=== PATIENT | male | born 1965 | race Caucasian/White ===

== ENCOUNTER 2021-12-14 11:31 | Outpatient (RCR) | payer BC, MEDICAID, SELFPAY ==
[2021-12-14 11:50] VITALS: BP 99/60; PULSE 63; RESP 18; TEMP 36.6; O2SAT 100
--- NOTE | 2021-12-14 12:30 | PC.NURSE ---
Pt to GI infusions for drainage of Pleurx cath to RLQ for malignant ascites. Pt with history of esophageal cancer with mets. Pt recently discharged from [facility] in [place], [place]. Pt moved to [place], [place] to live with his sister on Saturday. Sister presents with pt today. Pt scheduled to see Harry Lombardo to establish PCP tomorrow. Pt is also to call and schedule appointment with cancer treatment center. Pleurx cath was placed in [place] to help keep abdomen drained. Pt is self pay with Medicaid pending. Pt unable to afford to buy Pleurx kits to drain catheter at home. Pt drained prior to discharge from [facility] on Saturday with 6400 mL removed. Today (), 4000 mL clear, nga fluid removed. Pt scheduled twice weekly for drainage of Pluerx cath. Script sent with patient only covers 30 kits for the next 90 days. Each kit drains 1L of fluid. Pt used 4 kits today. Pt will run out of kits in 3 weeks as opposed to 3 months as script is written. Contacted Dr. Lombardo's clinic to discuss getting pt set up for weekly paracentesis with radiologist. Using 8+ kits per week to drain patient will exhaust current resources.
== END 2022-01-10 23:59 | disposition home or self-care (01) ==
LOC: GILAB 11:31
PROVIDERS: PCP Family Medicine; Visit Provider Hospitalist
DX: C80.1 Malignant (primary) neoplasm, unspecified (principal); R18.0 Malignant ascites
CPT/HCPCS: 99212

== ENCOUNTER 2021-12-15 10:04 | Emergency (ER) | payer BC, MEDICAID, SELFPAY ==
[2021-12-15] VITALS (19 sets, daily range): BP systolic 88–111; BP diastolic 54–81; PULSE 92–105; RESP 13–36; TEMP 36.6; O2SAT 96–100; BMI 26.0
--- NOTE | 2021-12-15 10:59 | XR_ITS ---
WS: [id number] Portable AP upright chest, 12/15/2021 Clinical Data: dyspnea/cough Comparison: None. Findings: No nodules, masses or effusions are seen. The heart is normal. The pulmonary vascularity is not increased. No pneumonia or pneumothorax is seen. There is a right internal jugular venous Port-A -Cath with the tip ending in the superior vena cava. There are monitor leads on the chest wall. XR/XR chest 1V portable [id number] Impression: Negative chest.
[2021-12-15 11:11] LABS: Basophils % 0.2 %; Eosinophils # 0.2 10^3/uL (0.0-0.8); Eosinophils % 1.1 %; Lymphocytes # 0.5 10^3/uL (0.8-4.8); Mean Corpuscular Volume 87.4 fl (80-94); Mean Platelet Volume 9.1 fL (7.4-10.4); Monocytes % 7.3 %; Neutrophils # 10.51 10^3/uL (1.8-7.7); Neutrophils % 79.7 %; Nucleated Red Blood Cells % 0.2 %; Platelet Count 318 10^3/cmm (130-400); Red Blood Count 2.86 10^6/uL (4.1-5.3); Red Cell Distribution Width 15.2 % (12.1-15.1); White Blood Count 13.2 10^3/uL (4.0-10.0)
--- NOTE | 2021-12-15 11:13 | ED_ITS ---
HPI - General Adult General: Chief complaint: General Medical Stated complaint: Low BP Time Seen by Provider: 12/15/21 10:34 Source: patient Mode of arrival: ambulatory History of Present Illness: 56-year-old male presents emergency room with complaint of lightheadedness and dizziness. He was at her primary care doctor's office today to establish and was noted to be significantly hypotensive. Patient has a history of esophageal cancer was diagnosed over a year ago he took partial treatment with chemo and radiation and then stopped, reportedly did 1-2 treatments. No reason given for cessation of treatment.. Initially he was in [place] he then moved to a family member's home in [facility] was hospitalized last month. At that time he had CT scans done and had a abdominal port placed to drain ascitic fluid. He drained 4 L yesterday and today he is lightheaded dizzy and hypotensive. It was 6 serous fluid they report there was no cloudiness appearance or blood-tinged appearance to it. He has not had any fever sweats or chills. He is mildly tachycardic on arrival. He denies any known history of coronary artery disease or diabetes. He has not had any fever sweats or chills. He does report that when he was at [place] they told him that there was extension of the cancer into his abdomen and the fluid that was drained off showed signs of cancer cells. Reviewing records it appears he had 6.5 L removed on December 11, 2021 and another 4 L on December 14. For a total of 10.5 L of this week alone. Onset (ago): day(s) Location: abdomen Radiation: non-radiation Severity: moderate Quality: aching Pain Consistency: constant Relieving factors: none Exacerbating factors: none Associated symptoms: Reports decreased appetite, dyspnea and weakness; Deny chest pain, confusion, cough, diaphoresis, fevers/chills, headache(s), malaise, nausea, rash, palpitations, seizures, short of breath, syncope or vomiting Treatments prior to arrival: none Review of Systems Const: Denies: fever(s), chills, fatigue, malaise or diaphoresis ENMT: Denies: throat pain, ear or mastoid pain, nasal discharge or nasal congestion Card: Denies: chest pain, palpitations or syncope Resp: Reports: dyspnea GI: Denies: abdominal pain, nausea or vomiting : Denies: flank pain, dysuria, urinary frequency or urinary urgency Skin/Breast: Denies: rash Neuro: Denies: headache(s) or confusion PFSH ED PFSH: Medical History (Updated 12/15/21 @ 15:38 by Rios Adamson DO) Esophageal cancer Malignant ascites Port-A-Cath in place Family History (Updated 12/15/21 @ 08:58 by Suzie Greene LPN) Mother CAD (coronary artery disease) Diabetes Grandmother CAD (coronary artery disease) Diabetes Father Lung disease copd Denies family history of Clotting disorder Dementia Hyperlipidemia Psychiatric illness Chronic kidney disease (CKD) Anesthesia complication Bleeding disorder Cancer Hypertension Stroke Social History (Updated 12/15/21 @ 08:59 by Suzie Greene LPN) Smoking and tobacco status: never smoked Alcohol intake: never Desire information about alcohol rehabilitation?: No Desire information about substance/drug rehabilitation?: No Adopted: No Caregiver/support person: Yes Current occupational status: disabled History of recent travel: Yes Current gender identity: Male Course Vital Signs: Vital signs: Vital Signs Temperature 97.8 F 12/15/21 10:33 Pulse Rate 105 H 12/15/21 16:08 Respiratory Rate 17 12/15/21 16:08 Blood Pressure 92/56 12/15/21 16:08 Pulse Oximetry 100 12/15/21 16:08 Oxygen Delivery Me thod 12/15/21 10:33 [facility] - General Adult Medical Decision Making Records obtained from [facility] in [place]. 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 He has had a large amount of ascites removed recently since the drain was placed. In the notes that her oncology felt that he was best suited for palliative treatment. I discussed this with the patient. We offered admission based on his hyponatremia however did discuss with him that this is something we likely would be able to correct and rather short order and would most likely recur with further drainage from his abdomen. I suspect that placed the peritoneal drain anticipating that he was at end-of-life care. Patient opted to go home for to day we will try to get him set up for oncology so he can discuss what his options may or may not be going forward. The records sent to us from [facility] were reviewed and the most pertinent were scanned into the chart. Medical Records I reviewed the patient's medical records. Lab Data I reviewed the patient's lab results. : 12/15/21 10:53 12/15/21 10:53 Radiology Impressions Chest X-Ray 12/15/21 10:59 Impression: Negative chest. Laboratory Results WBC 13.2 10^3/uL (4.0-10.0) H 12/15/21 10:53 RBC 2.86 10^6/uL (4.1-5.3) L 12/15/21 10:53 Hgb 8.0 g/dL (11.7-16.6) L 12/15/21 10:53 Hct 25.0 % (42.0-52.0) L 12/15/21 10:53 MCV 87.4 fl (80-94) 12/15/21 10:53 MCH 28.0 pg (28.0-34.0) 12/15/21 10:53 MCHC 32.0 g/dL (30.0-36.0) 12/15/21 10:53 RDW 15.2 % (12.1-15.1) H 12/15/21 10:53 Plt Count 318 10^3/cmm (130-400) 12/15/21 10:53 MPV 9.1 fL (7.4-10.4) 12/15/21 10:53 Neut % (Auto) 79.7 % 12/15/21 10:53 Lymph % (Auto) 4.0 % 12/15/21 10:53 [place] % (Auto) 7.3 % 12/15/21 10:53 Eos % (Auto) 1.1 % 12/15/21 10:53 Baso % (Auto) 0.2 % 12/15/21 10:53 Neut # (Auto) 10.51 10^3/uL (1.8-7.7) H 12/15/21 10:53 Lymph # (Auto) 0.5 10^3/uL (0.8-4.8) L 12/15/21 10:53 [place] # (Auto) 1.0 10^3/uL (0.2-0.9) H 12/15/21 10:53 Eos # (Auto) 0.2 10^3/uL (0.0-0.8) 12/15/21 10:53 Baso # (Auto) 0.0 10^3/uL (0.0-0.1) 12/15/21 10:53 Nucleated RBC % (auto) 0.2 % 12/15/21 10:53 Nucleated RBCs # 0.0 /100WBC 12/15/21 10:53 Sodium 123 mmol/L (136-145) L 12/15/21 10:53 Potassium 4.8 mmol/L (3.5-5.1) 12/15/21 10:53 Chloride 88 mmol/L (98-107) L 12/15/21 10:53 Carbon Dioxide 19 mmol/L (22-29) L 12/15/21 10:53 Anion Gap 20.8 (5-19) H 12/15/21 10:53 BUN 29 mg/dL (6-20) H 12/15/21 10:53 Creatinine 1.2 mg/dL (0.7-1.2) 12/15/21 10:53 GFR Calculation 62.2 mL/min (90-130) L 12/15/21 10:53 Glucose 136 mg/dL (65-115) H 12/15/21 10:53 Calculated Osmolality 264 mOsm/kg (285-295) L 12/15/21 10:53 Calcium 9.4 mg/dL (8.5-10.5) 12/15/21 10:53 Discharge Plan Discharge Patient Disposition: Home Clinical Impression: Malignant ascites, Esophageal cancer, Carcinomatosis, Pain of metastatic malignancy, Hypotension, Hyponatremia Condition: Stable Prescriptions: New promethazine 25 mg tablet 25 mg PO Q6H PRN (Reason: nausea and vomiting) Qty: 20 0RF oxycodone 5 mg tablet 5 mg PO Q6H PRN (Reason: pain) Qty: 20 0RF No Action acetaminophen [Tylenol Ex Str Rapid Release] 500 mg Tablet 1,000 mg PO Q6H PRN (Reason: Pain) ibuprofen 200 mg Tablet 600 mg PO Q6H PRN (Reason: Pain) gabapentin 100 mg Capsule 200 mg PO TID ciprofloxacin HCl [Cipro] 500 mg Tablet 500 mg PO DAILY polyethylene glycol 3350 [Miralax] 17 gram Powder In Packet 17 g PO DAILY PRN (Reason: Constipation) oxycodone 5 mg Tablet 5 mg PO Q8H PRN (Reason: Pain) Discharge Orders: Discharge ED (Routine); Ordered 12/15/21 Ordered By: Rios Adamson Referrals: Harry Lombardo MD [Primary Care Provider] - Patient Instructions: Opioid Safety, Pain Management Activity Restrictions/Additional Instructions: Case management will make arrangements for you to follow-up with oncology. Coding Level of Care Code ED [employer] Designer for Kin Francis
[2021-12-15] MEDS: sodium chloride 0.9% 1,000 ML 999 ML IV (11:19)
[2021-12-15 11:23] LABS: Anion Gap 20.8 (5-19); Blood Urea Nitrogen 29 mg/dL (6-20); Calcium 9.4 mg/dL (8.5-10.5); Carbon Dioxide 19 mmol/L (22-29); Chloride 88 mmol/L (98-107); Glomerular Filtration Rate 62.2 mL/min (90-130); Glucose 136 mg/dL (65-115); Osmolality Calculated 264 mOsm/kg (285-295); Potassium 4.8 mmol/L (3.5-5.1); Sodium 123 mmol/L (136-145)
[2021-12-15 11:40] LABS: Slide Review Slide Review Perform
--- NOTE | 2021-12-15 12:27 | PC.NURSE ---
pt given urinal, pt states he cannot use a urinal and needs to use the restroom. Educated pt on fall risk and to utilize staff assist and wheelchair for assistance to restroom. Once in restroom, notified by tech that pt refused assistance, requesting staff to wait outside
== END 2021-12-15 16:10 | disposition home or self-care (01) ==
PROVIDERS: Emergency Provider Family Medicine; PCP Family Medicine
DX: I95.9 Hypotension, unspecified (principal); C15.9 Malignant neoplasm of esophagus, unspecified; R18.0 Malignant ascites; C80.0 Disseminated malignant neoplasm, unspecified; G89.3 Neoplasm related pain (acute) (chronic); E87.1 Hypo-osmolality and hyponatremia
CPT/HCPCS: 71045; 80048; 85025; 96360; 99284; J7030

== ENCOUNTER 2021-12-18 11:11 | Day surgery (SDC) | payer BC, MEDICAID, SELFPAY ==
--- NOTE | 2021-12-18 11:14 | US_ITS ---
WS: [id number] ULTRASOUND-GUIDED PARACENTESIS CLINICAL INFORMATION: malignant ascites COMPARISON: None. Procedure Informed consent: The risks, benefits, and alternatives of the procedure were discussed with the tye ent. Verbal and written consent was obtained. Timeout: A timeout was performed to confirm the correct patient, procedure, and site. Preparation: A suitable skin site was identified. The patient was prepped and draped in usual sterile fashion. Lidocaine 1% was used for local anesthesia. Catheter: 4 Lao One-step Yueh catheter. Side: RIGHT Lower quadrant. Fluid Volume: 3550 ml Color: Brittany 50 cc sent for requested diagnostic tests. DISPOSITION: Discarded safely. Complications: None. Patient disposition: Discharged from the department in stable condition. US/US paracentesis abd w [id number] IMPRESSION: Uncomplicated ultrasound-guided paracentesis. Removal of 3550 cc
[2021-12-18 11:30] VITALS: BP 82/53; PULSE 103; RESP 20; TEMP 36.4; O2SAT 100
--- NOTE | 2021-12-18 13:10 | PC.NURSE ---
pt paracentesis started at 1243 with 6ml of 1% lidocaine applied to area lidocaine administered by Dr. Salazar in right abdomen pt tolerated poorly due to increased pain over all
[2021-12-18 13:13] LABS: Mononuclear #, Pertinoneal Fl 0.629 10^3/uL; Polynuclear # Cells, Perit 0.135 10^3/uL
[2021-12-18 13:21] LABS: Color, Peritoneal Fluid Slight Pink (Pale Yellow)
[2021-12-18 13:22] LABS: Appearance, Peritoneal Fluid Hazy (Clear)
[2021-12-18 13:27] LABS: RBC Pertioneal Fluid 6 10^3/uL; WBC Peritoneal Fluid 764 /uL
[2021-12-18 14:02] LABS: Albumin Body Fluid 1.6 g/dL; Total Protein Body Fluid 2.9 g/dL
[2021-12-18 14:03] LABS: LDH Body Fluid 885 U/L
[2021-12-18 14:45] LABS: Cyto Order Verification No Order
== END 2021-12-18 14:13 | disposition home or self-care (01) ==
LOC: GILAB 11:14
PROVIDERS: PCP Family Medicine; Visit Provider Family Medicine
PROC: (CPT 49082; principal; 2021-12-18 13:00)
DX: R18.8 Other ascites (principal)
CPT/HCPCS: 49083; 80503; 82042; 82945; 83615; 84157; 87070; 87075; 87205; 88108; 89050

== ENCOUNTER 2021-12-25 11:01 | Day surgery (SDC) | payer BC, MEDICAID, SELFPAY ==
[2021-12-24 11:20] VITALS: BP 96/66; PULSE 97; RESP 22; TEMP 36.1; O2SAT 100
--- NOTE | 2021-12-25 11:20 | US_ITS ---
WS: [id number] ULTRASOUND-GUIDED THERAPEUTIC PARACENTESIS Procedure, risks, and complications have been explained to the patient. Consent is obtained. Utilizing aseptic technique and 1% buffered lidocaine, a small dermatome was made through which a 5 F rench Yueh catheter was inserted. Approximately 7500 ml of light red peritoneal fluid was obtained w ithout difficulty. No complications encountered. US/US paracentesis abd w [id number] IMPRESSION: Uncomplicated paracentesis yielding 7500 ml of peritoneal fluid.
[2021-12-25 13:00] VITALS: BP 89/56; PULSE 99; RESP 22; O2SAT 99
== END 2021-12-25 13:20 | disposition home or self-care (01) ==
LOC: GILAB 11:02
PROVIDERS: Radiology Diagnostic Radiology; PCP Family Medicine; Visit Provider Family Medicine
PROC: (CPT 49082; principal; 2021-12-25 12:00)
DX: C80.1 Malignant (primary) neoplasm, unspecified (principal); R18.0 Malignant ascites
CPT/HCPCS: 49083

== ENCOUNTER 2021-12-29 12:14 | Emergency (ER) | payer BC, MEDICAID, SELFPAY ==
[2021-12-29 12:21] VITALS: BP 62/40; PULSE 101; RESP 16; TEMP 36.4; O2SAT 100; BMI 25.5
--- NOTE | 2021-12-29 12:33 | XR_ITS ---
WS: [id number] Exam: XR chest 1V portable [id number] Date/Time of Exam: 12/29/2021 12:33 PM Reason For Exam: dyspnea/cough Comparison 12/15/2021. The lungs are clear and fully inflated. Heart size is normal. A right subclavian port extends into th e right atrium. No pleural effusions. The mediastinum is normal in contour. Regional bony elements ap pear normal. Monitoring leads superimpose the chest. XR/XR chest 1V portable [id number] IMPRESSION: 1. No acute cardiopulmonary finding.
--- NOTE | 2021-12-29 12:37 | W.ED.GENADLT ---
HPI - General Adult General: Chief complaint: Shortness of Breath/Dyspnea Stated complaint: BP problems Time Seen by Provider: 12/29/21 12:32 Source: patient Mode of arrival: ambulatory History of Present Illness: 56 yo male presents to the ER [facility] complaints of abd pain and distention. Patient has a known history of esophageal cancer. He had delayed treatment and has significant metastasis. Presents extremely weak with distention of his abdomen. He is chronically anemic as well. He has had thoracentesis and paracentesis with intermittent relief of symptoms but all of his symptoms recur within a few days. He is having bloody stools as well. On presentation he is hypotensive and tachycardic. His symptoms are progressively worsening. Onset (ago): week(s) Pain Consistency: intermittent Relieving factors: none Exacerbating factors: none Associated symptoms: Reports confusion, decreased appetite, malaise, nausea, short of breath and weakness; Deny chest pain, cough, diaphoresis, dyspnea, fevers/chills, headache(s), rash, palpitations, seizures, syncope or vomiting Treatments prior to arrival: none Review of Systems Const: Reports: fatigue and malaise; Denies: fever(s), chills or diaphoresis ENMT: Denies: throat pain, ear or mastoid pain, nasal discharge or nasal congestion Card: Denies: chest pain, palpitations or syncope Resp: Denies: dyspnea GI: Reports: abdominal pain, nausea, bloating and GI cramping; Denies: vomiting : Denies: flank pain, dysuria, urinary frequency or urinary urgency Skin/Breast: Denies: rash Neuro: Reports: confusion; Denies: headache(s) [facility] ED PFSH: Medical History Esophageal cancer Malignant ascites Port-A-Cath in place Family History Mother CAD (coronary artery disease) Diabetes Grandmother CAD (coronary artery disease) Diabetes Father Lung disease copd Denies family history of Clotting disorder Dementia Hyperlipidemia Psychiatric illness Chronic kidney disease (CKD) Anesthesia complication Bleeding disorder Cancer Hypertension Stroke Social History Smoking and tobacco status: never smoked Alcohol intake: never Desire information about alcohol rehabilitation?: No Desire information about substance/drug rehabilitation?: No Adopted: No Caregiver/support person: Yes Current occupational status: disabled History of recent travel: Yes Current gender identity: Male Physical Exam Const: GENERAL APPEARANCE: cooperative HENMT: COMMON NORMALS: normocephalic, atraumatic and hearing grossly normal bilaterally HEAD & SCALP: normocephalic and atraumatic Resp: COMMON NORMALS: normal respiratory effort, No retractions, No use of accessory muscles and clear to auscultation bilaterally AUSCULTATION: clear to auscultation bilaterally Cardio: COMMON NORMALS: regular rhythm and No murmurs present (Cardio) RATE: tachycardic RHYTHM: regular rhythm GI: INSPECTION: Yes abdominal distension and Yes Fluid wave present AUSCULTATION: Yes normoactive bowel sounds PERCUSSION: dullness to percussion and Fluid wave present Extremity: COMMON NORMALS: normal to inspection, capillary refill normal, no clubbing, cyanosis or edema, no calf tenderness and no pedal edema Skin: COMMON NORMALS: no rashes or lesions noted GENERAL SKIN EXAM: no rashes or lesions noted Course Vital Signs: Vital signs: Vital Signs Temperature 97.6 F 12/29/21 12:21 Pulse Rate 93 12/29/21 13:10 Respiratory Rate 26 H 12/29/21 13:10 Blood Pressure 88/64 12/29/21 13:10 Pulse Oximetry 100 12/29/21 13:10 Oxygen Delivery Me thod 12/29/21 13:05 MDM - General Adult Medical Decision Making Discussion with patient and his sister. At this point his cancer is very advanced we discussed different treatment options ultimately decided that it would be best to go with supportive cares we will discharge patient from ER and arrange for hospice consult at home for comfort cares. Medical Records I reviewed the patient's medical records. Lab Data I reviewed the patient's lab results. 12/29/21 12:48 12/29/21 12:48 Radiology Impressions Chest X-Ray 12/29/21 12:33 IMPRESSION: 1. No acute cardiopulmonary finding. Laboratory Results WBC 20.6 10^3/uL (4.0-10.0) H 12/29/21 12:48 RBC 2.85 10^6/uL (4.1-5.3) L 12/29/21 12:48 Hgb 8.0 g/dL (11.7-16.6) L 12/29/21 12:48 Hct 25.2 % (42.0-52.0) L 12/29/21 12:48 MCV 88.4 fl (80-94) 12/29/21 12:48 MCH 28.1 pg (28.0-34.0) 12/29/21 12:48 MCHC 31.7 g/dL (30.0-36.0) 12/29/21 12:48 RDW 16.8 % (12.1-15.1) H 12/29/21 12:48 Plt Count 124 10^3/cmm (130-400) L 12/29/21 12:48 MPV 10.1 fL (7.4-10.4) 12/29/21 12:48 Neut % (Auto) 81.8 % 12/29/21 12:48 Lymph % (Auto) 5.8 % 12/29/21 12:48 [place] % (Auto) 5.5 % 12/29/21 12:48 Eos % (Auto) 0.2 % 12/29/21 12:48 Baso % (Auto) 0.2 % 12/29/21 12:48 Neut # (Auto) 16.84 10^3/uL (1.8-7.7) H 12/29/21 12:48 Lymph # (Auto) 1.2 10^3/uL (0.8-4.8) 12/29/21 12:48 [place] # (Auto) 1.1 10^3/uL (0.2-0.9) H 12/29/21 12:48 Eos # (Auto) 0.0 10^3/uL (0.0-0.8) 12/29/21 12:48 Baso # (Auto) 0.1 10^3/uL (0.0-0.1) 12/29/21 12:48 Nucleated RBC % (auto) 0.7 % 12/29/21 12:48 Nucleated RBCs # 0.1 /100WBC 12/29/21 12:48 Sodium 121 mmol/L (136-145) L 12/29/21 12:48 Potassium 5.9 mmol/L (3.5-5.1) H 12/29/21 12:48 Chloride 85 mmol/L (98-107) L 12/29/21 12:48 Carbon Dioxide 15 mmol/L (22-29) L 12/29/21 12:48 Anion Gap 26.9 (5-19) H 12/29/21 12:48 BUN 56 mg/dL (6-20) H 12/29/21 12:48 Creatinine 1.6 mg/dL (0.7-1.2) H 12/29/21 12:48 GFR Calculation 44.6 mL/min (90-130) L 12/29/21 12:48 Glucose 151 mg/dL (65-115) H 12/29/21 12:48 Calculated Osmolality 270 mOsm/kg (285-295) L 12/29/21 12:48 Lactic Acid 6.3 mmol/L (0.5-2.2) H* 12/29/21 12:48 Calcium 11.4 mg/dL (8.5-10.5) H 12/29/21 12:48 Magnesium 2.7 mg/dL (1.7-2.3) H 12/29/21 12:48 Total Bilirubin 0.4 mg/dL (0.15-1.2) 12/29/21 12:48 AST 40 U/L (0-40) 12/29/21 12:48 ALT 11 U/L (0-41) 12/29/21 12:48 Alkaline Phosphatase 239 U/L (40-130) H 12/29/21 12:48 Creatine Kinase 167 U/L (39-308) 12/29/21 12:48 Total Protein 6.3 g/dL (6.6-8.7) L 12/29/21 12:48 Albumin 2.9 g/dL (3.5-5.2) L 12/29/21 12:48 Globulin 3.4 g/dL (1.3-4.6) 12/29/21 12:48 Discharge Plan Discharge Patient Disposition: Home Clinical Impression: Esophageal cancer, Malignant ascites, Pain of metastatic malignancy, Hypotension, Carcinomatosis Condition: Stable Prescriptions: No Action acetaminophen 500 mg Tablet 1,000 mg PO Q6H PRN (Reason: Pain) ibuprofen 200 mg Tablet 600 mg PO Q6H PRN (Reason: Pain) promethazine 25 mg tablet 25 mg PO Q6H PRN (Reason: nausea and vomiting) Qty: 20 0RF gabapentin 100 mg Capsule 200 mg PO TID polyethylene glycol 3350 [Miralax] 17 gram Powder In Packet 17 g PO DAILY PRN (Reason: Constipation) oxycodone 5 mg Tablet 5 mg PO Q6H PRN (Reason: Pain) Discharge Orders: Discharge ED (Routine); Ordered 12/29/21 Ordered By: Rios Adamson Referrals: Harry Lombardo MD [Primary Care Provider] - Patient Instructions: Opioid Safety, Pain Management Coding Level of Care Code ED [employer] Researcher for Kin Francis
--- NOTE | 2021-12-29 12:44 | PC.PHAR ---
pts sister verified pts medications-states the pt has the medications entered and states some of the medications are from [place]-pts sister states the pt is almost out of the oxycodone states the pt had some from [place] and then ext med history shows filled 12/17/21 5d/s-notes are made in the pharmacy comments
[2021-12-29 12:54] VITALS: BP 76/47; PULSE 95; RESP 17; O2SAT 94
[2021-12-29 12:55] VITALS: BP 79/52; PULSE 95; RESP 19; O2SAT 100
[2021-12-29 12:57] LABS: Basophils # 0.1 10^3/uL (0.0-0.1); Basophils % 0.2 %; Eosinophils % 0.2 %; Hematocrit 25.2 % (42.0-52.0); Lymphocytes # 1.2 10^3/uL (0.8-4.8); Lymphocytes % 5.8 %; Mean Corpuscular HGB Conc 31.7 g/dL (30.0-36.0); Mean Corpuscular Hemoglobin 28.1 pg (28.0-34.0); Mean Corpuscular Volume 88.4 fl (80-94); Mean Platelet Volume 10.1 fL (7.4-10.4); Monocytes # 1.1 10^3/uL (0.2-0.9); Monocytes % 5.5 %; Neutrophils # 16.84 10^3/uL (1.8-7.7); Neutrophils % 81.8 %; Nucleated Red Blood Cells # 0.1 /100WBC; Nucleated Red Blood Cells % 0.7 %; Platelet Count 124 10^3/cmm (130-400); Red Blood Count 2.85 10^6/uL (4.1-5.3); Red Cell Distribution Width 16.8 % (12.1-15.1); White Blood Count 20.6 10^3/uL (4.0-10.0)
[2021-12-29 13:00] VITALS: BP 79/52; PULSE 93; RESP 28
[2021-12-29 13:05] VITALS: BP 80/60; PULSE 92; PULSE 93; RESP 20; RESP 27; O2SAT 100
[2021-12-29 13:10] VITALS: BP 88/64; PULSE 93; RESP 26; O2SAT 100
[2021-12-29 13:16] LABS: Alanine Aminotransferase 11 U/L (0-41); Albumin Level 2.9 g/dL (3.5-5.2); Alkaline Phosphatase 239 U/L (40-130); Aspartate Amino Transferase 40 U/L (0-40); Blood Urea Nitrogen 56 mg/dL (6-20); Calcium 11.4 mg/dL (8.5-10.5); Carbon Dioxide 15 mmol/L (22-29); Chloride 85 mmol/L (98-107); Creatine Phosphokinase 167 U/L (39-308); Globulin 3.4 g/dL (1.3-4.6); Glomerular Filtration Rate 44.6 mL/min (90-130); Glucose 151 mg/dL (65-115); Magnesium 2.7 mg/dL (1.7-2.3); Osmolality Calculated 270 mOsm/kg (285-295); Sodium 121 mmol/L (136-145); Total Bilirubin 0.4 mg/dL (0.15-1.2); Total Protein 6.3 g/dL (6.6-8.7)
[2021-12-29 13:19] LABS: Anion Gap 26.9 (5-19); Lactic Sepsis W/Reflex 6.3 mmol/L (0.5-2.2)
[2021-12-29 13:20] LABS: Potassium 5.9 mmol/L (3.5-5.1)
[2021-12-29] MEDS: sodium chloride 0.9% 1,000 ML 999 ML IV (13:26)
[2021-12-29] MEDS: ondansetron 2 mg/ML SDV 2 mL 4 MG IVP (13:29)
[2021-12-29] MEDS: HYDROmorphone 1 mg/mL INJ 1 mL 0.5 MG IVP (13:30)
[2021-12-29 13:57] LABS: Slide Review Slide Review Perform
[2021-12-29 14:41] LABS: Reflex Lactate Order REFLEX LACTIC ORDERD
== END 2021-12-29 15:11 | disposition home or self-care (01) ==
PROVIDERS: Emergency Provider Family Medicine; PCP Family Medicine
DX: C15.9 Malignant neoplasm of esophagus, unspecified (principal); R18.0 Malignant ascites; I95.9 Hypotension, unspecified; C80.0 Disseminated malignant neoplasm, unspecified
CPT/HCPCS: 71045; 80053; 82550; 83605; 83735; 85025; 96361; 96374; 96375; 99284; J1170; J2405; J7030

== ENCOUNTER 2022-01-01 10:47 | Day surgery (SDC) | payer BC, MEDICAID, SELFPAY ==
[2022-01-01] VITALS (7 sets, daily range): BP systolic 73–100; BP diastolic 49–66; PULSE 63–87; RESP 18; TEMP 35.9; O2SAT 100
--- NOTE | 2022-01-01 10:53 | US_ITS ---
WS: [id number] ULTRASOUND-GUIDED PARACENTESIS CLINICAL INFORMATION: ascities COMPARISON: None. Procedure Informed consent: The risks, benefits, and alternatives of the procedure were discussed with the tye ent. Verbal and written consent was obtained. Timeout: A timeout was performed to confirm the correct patient, procedure, and site. Preparation: A suitable skin site was identified. The patient was prepped and draped in usual sterile fashion. Lidocaine 1% was used for local anesthesia. Catheter: 4 Vietnamese One-step Yueh catheter. Side: RIGHT upper quadrant. Fluid Volume: 3675 ml Color: Light red DISPOSITION: Discarded safely. Complications: None. Patient disposition: Discharged from the department in stable condition. US/US paracentesis abd w [id number] IMPRESSION: Uncomplicated ultrasound-guided paracentesis. Removal of 3675 cc
== END 2022-01-01 13:01 | disposition home or self-care (01) ==
LOC: GILAB 10:50
PROVIDERS: Radiology Neuroradiology; PCP Family Medicine; Visit Provider Family Medicine
PROC: (CPT 49082; principal; 2022-01-01 11:45)
DX: R18.8 Other ascites (principal)
CPT/HCPCS: 49083

== ENCOUNTER 2022-01-01 16:25 | Inpatient (IN) | payer BC, SELFPAY ==
[2022-01-01] VITALS (53 sets, daily range): BP systolic 65–183; BP diastolic 35–90; PULSE 62–99; RESP 12–21; TEMP 36.6; O2SAT 91–100; BMI 25.5
--- NOTE | 2022-01-01 16:51 | W.ED.GENADLT ---
HPI - General Adult General: Chief complaint: General Medical Stated complaint: toes are purple sent by PCP Time Seen by Provider: 01/01/22 16:44 Source: family (sister) Limitations: altered mental status History of Present Illness: 56-year-old male with a history of esophageal cancer and carcinomatosis with malignant ascites had a paracentesis today starting at 11 and finishing at 2. Afterwards he was lightheaded and dizzy. He ultimately ended up passing out. Patient is found to have severe hypotension on arrival. His extremities are cold. He has poor capillary refill. His right toes in particular are painful and cool to the touch. He has known peripheral arterial disease prior to his hypotension. The paracentesis reportedly went smoothly and there was no expected complication from this. Sister does not know how much fluid was removed. Review of Systems Narrative: Unable to perform review of systems due to the patient's altered mental status and the emergent nature of the situation. The sister informed me of his syncope. He was in a chair when he had syncope so there was no injury. She reports she just picked him up from out of state in [place] 3 weeks ago and so was only familiar with his medical condition over the last 3 weeks. His blood pressure was reportedly 107 prior to the start of his paracentesis. She reports he is not on any anticoagulation. [facility] ED PFSH: Medical History Esophageal cancer Malignant ascites Port-A-Cath in place Family History Mother CAD (coronary artery disease) Diabetes Grandmother CAD (coronary artery disease) Diabetes Father Lung disease copd Denies family history of Clotting disorder Dementia Hyperlipidemia Psychiatric illness Chronic kidney disease (CKD) Anesthesia complication Bleeding disorder Cancer Hypertension Stroke Social History (Updated 12/21/21 @ 09:58 by Suzie Greene LPN) Smoking and tobacco status: never smoked Alcohol intake: never Desire information about alcohol rehabilitation?: No Desire information about substance/drug rehabilitation?: No Adopted: No Caregiver/support person: Yes Current occupational status: disabled History of recent travel: Yes Current gender identity: Male Physical Exam Const: EXAM LIMITATIONS: altered mental status GENERAL APPEARANCE: lethargic, ill appearing and frail appearing; not diaphoretic NUTRITIONAL APPEARANCE: underweight ORIENTATION/CONSCIOUSNESS: Yes patient obtunded and Yes lethargic HENMT: COMMON NORMALS: normocephalic, atraumatic, external ears normal and Normal external nose present HEAD & SCALP: normocephalic and atraumatic NOSE: Normal external nose present EXTERNAL EAR: Yes external ears normal Neck/C-Spine: COMMON NORMALS: no JVD GENERAL: Yes trachea midline Resp: EFFORT & INSPECTION: Yes symmetric chest movement and Yes tachypneic Cardio: COMMON NORMALS: no JVD RATE: tachycardic PERIPHERAL PULSES: radial pulses not present, posterior tibial pulses not present and dorsalis pedis pulses not present GI: COMMON NORMALS: Soft to palpation INSPECTION: Yes normal to inspection PALPATION: Yes Soft to palpation, No Tenderness to palpation present (GI) and No Guarding due to palpation present (GI) Neuro: SENSORIUM/ORIENTATION: Yes lethargic Skin: NARRATIVE SKIN EXAM: There is a drain extending from right lower lateral abdomen. THere is a puncture wound right lower/mid abdomen that has some skin glue on it--appears to be from today. There is another more midline lower right skin defect with skin glue on it--likely from last week. The extremities are pretty pale and cool. The right toes (primarily 2-5) are purplish with slow cap refill and hyperalgesia. Course Vital Signs: Vital signs: Vital Signs Pulse Rate 96 01/01/22 16:47 Respiratory Rate 16 01/01/22 16:47 Blood Pressure 80/52 01/01/22 16:47 Pulse Oximetry 97 01/01/22 16:47 Oxygen Delivery Me thod 01/01/22 16:30 [facility] - General Adult Medical Decision Making 56 yo m with what appears to be post paracentesis hypotension. Review of labs and documents reveals patient has low albumin, recurrent hypotension. He was given 50g of albumin and 1L of warm NS and improved BP to 104 systolic. WBC,, potassium, sodium, hgb and essentially all of his labs are abnormal--but appear chronically so. Lactic quite elevated c/w poor perfusion on presentation--trend. Discussed with Dr Melvin for observation admission in stepdown as may need further workup/treatment. EKG shows NSR at 87, nl axis, qrs 110, qtc okay, no concerning ischemic elevations. No ectopy. Lab Data 01/01/22 16:45 01/01/22 16:45 Laboratory Results WBC 18.3 10^3/uL (4.0-10.0) H 01/01/22 16:45 RBC 2.74 10^6/uL (4.1-5.3) L 01/01/22 16:45 Hgb 7.6 g/dL (11.7-16.6) L 01/01/22 16:45 Hct 24.6 % (42.0-52.0) L 01/01/22 16:45 MCV 89.8 fl (80-94) 01/01/22 16:45 MCH 27.7 pg (28.0-34.0) L 01/01/22 16:45 MCHC 30.9 g/dL (30.0-36.0) 01/01/22 16:45 RDW 17.2 % (12.1-15.1) H 01/01/22 16:45 Plt Count 102 10^3/cmm (130-400) L 01/01/22 16:45 MPV 10.0 fL (7.4-10.4) 01/01/22 16:45 Neut % (Auto) 82.6 % 01/01/22 16:45 Lymph % (Auto) 4.8 % 01/01/22 16:45 Moffat % (Auto) 4.4 % 01/01/22 16:45 Eos % (Auto) 0.3 % 01/01/22 16:45 Baso % (Auto) 0.3 % 01/01/22 16:45 Neut # (Auto) 15.06 10^3/uL (1.8-7.7) H 01/01/22 16:45 Lymph # (Auto) 0.9 10^3/uL (0.8-4.8) 01/01/22 16:45 Moffat # (Auto) 0.8 10^3/uL (0.2-0.9) 01/01/22 16:45 Eos # (Auto) 0.1 10^3/uL (0.0-0.8) 01/01/22 16:45 Baso # (Auto) 0.1 10^3/uL (0.0-0.1) 01/01/22 16:45 Nucleated RBC % (auto) 1.7 % 01/01/22 16:45 Nucleated RBCs # 0.3 /100WBC 01/01/22 16:45 PT 14.50 SECONDS (12.1-14.9) 01/01/22 16:45 INR 1.10 (0.8-1.2) 01/01/22 16:45 Sodium 119 mmol/L (136-145) L* 01/01/22 16:45 Potassium 6.1 mmol/L (3.5-5.1) H 01/01/22 16:45 Chloride 85 mmol/L (98-107) L 01/01/22 16:45 Carbon Dioxide 16 mmol/L (22-29) L 01/01/22 16:45 Anion Gap 24.1 (5-19) H 01/01/22 16:45 BUN 58 mg/dL (6-20) H 01/01/22 16:45 Creatinine 1.6 mg/dL (0.7-1.2) H 01/01/22 16:45 GFR Calculation 44.6 mL/min (90-130) L 01/01/22 16:45 Glucose 158 mg/dL (65-115) H 01/01/22 16:45 Calculated Osmolality 267 mOsm/kg (285-295) L 01/01/22 16:45 Lactic Acid 5.2 mmol/L (0.5-2.2) H* 01/01/22 16:45 Calcium 12.0 mg/dL (8.5-10.5) H 01/01/22 16:45 Total Bilirubin 0.3 mg/dL (0.15-1.2) 01/01/22 16:45 AST 26 U/L (0-40) 01/01/22 16:45 ALT 12 U/L (0-41) 01/01/22 16:45 Alkaline Phosphatase 254 U/L (40-130) H 01/01/22 16:45 Total Protein 6.0 g/dL (6.6-8.7) L 01/01/22 16:45 Albumin 2.8 g/dL (3.5-5.2) L 01/01/22 16:45 Globulin 3.2 g/dL (1.3-4.6) 01/01/22 16:45 Discharge Plan Discharge Patient Disposition: Placed in Observation Clinical Impression: Hypotension, Malignant ascites, Status post abdominal paracentesis, Anemia, Chronic hyponatremia, Hyperkalemia, Carcinomatosis Discharge Diet: Advance as tolerated Coding Level of Care Code ED Armor Reconnaissance Vehicle Crewman for Chg Fwd Exam Detailed
--- NOTE | 2022-01-01 16:53 | ECG_ITS ---
[facility] Test Date: 2022-01-01 Pat Name: Neville Galeas Department: Room: Gender: Male Inspector Electromechanical: : 1965 Requested By: Jay Borrego Order Number: [id number] Anthony MD: Hitesh Montiel M.D. Measurements Intervals [place] Rate: 87 P: -13 [place]: 140 QRS: 62 QRSD: 110 T: 39 QT: 343 QTc: 414 Interpretive Statements SINUS RHYTHM No previous ECG available for comparison Electronically Signed On 01-01-2022 18:17:00 NEWS VIDEOTAPE EDITOR by Hitesh Montiel M.D. [id number]
--- NOTE | 2022-01-01 17:01 | PC.NURSE ---
middle 3 toes on right foot noted to appear cyanotic and non blanchable. skin cool to touch. pt is oriented to person and place. pt states he does not know what month or year this is, but is aware Thanksgiving is coming up.
[2022-01-01 17:07] LABS: Basophils # 0.1 10^3/uL (0.0-0.1); Basophils % 0.3 %; Eosinophils # 0.1 10^3/uL (0.0-0.8); Eosinophils % 0.3 %; Hematocrit 24.6 % (42.0-52.0); Hemoglobin 7.6 g/dL (11.7-16.6); Lymphocytes # 0.9 10^3/uL (0.8-4.8); Lymphocytes % 4.8 %; Mean Corpuscular HGB Conc 30.9 g/dL (30.0-36.0); Mean Corpuscular Hemoglobin 27.7 pg (28.0-34.0); Mean Corpuscular Volume 89.8 fl (80-94); Monocytes # 0.8 10^3/uL (0.2-0.9); Monocytes % 4.4 %; Neutrophils # 15.06 10^3/uL (1.8-7.7); Neutrophils % 82.6 %; Nucleated Red Blood Cells # 0.3 /100WBC; Nucleated Red Blood Cells % 1.7 %; Platelet Count 102 10^3/cmm (130-400); Red Blood Count 2.74 10^6/uL (4.1-5.3); Red Cell Distribution Width 17.2 % (12.1-15.1); White Blood Count 18.3 10^3/uL (4.0-10.0)
[2022-01-01] MEDS: sodium chloride 0.9% 1,000 ML 999 ML IV (17:09)
[2022-01-01 17:36] LABS: Alanine Aminotransferase 12 U/L (0-41); Albumin Level 2.8 g/dL (3.5-5.2); Alkaline Phosphatase 254 U/L (40-130); Anion Gap 24.1 (5-19); Aspartate Amino Transferase 26 U/L (0-40); Blood Urea Nitrogen 58 mg/dL (6-20); Carbon Dioxide 16 mmol/L (22-29); Chloride 85 mmol/L (98-107); Globulin 3.2 g/dL (1.3-4.6); Glomerular Filtration Rate 44.6 mL/min (90-130); Glucose 158 mg/dL (65-115); Osmolality Calculated 267 mOsm/kg (285-295); Potassium 6.1 mmol/L (3.5-5.1); Total Bilirubin 0.3 mg/dL (0.15-1.2)
[2022-01-01 17:40] LABS: Lactic Sepsis W/Reflex 5.2 mmol/L (0.5-2.2)
[2022-01-01 17:41] LABS: Sodium 119 mmol/L (136-145)
--- NOTE | 2022-01-01 18:06 | P.HP_ITS ---
Providers/Chief Complaint Admitting Physician: Gallito Melvin MD Primary Care Provider: Harry Lombardo MD Chief Complaint: toes are purple sent by PCP History of Present Illness Neville Galeas is a 56 year old male with past medical history significant for esophageal cancer with carcinomatosis and malignant ascites, hyperkalemia, hyponatremia, and anemia who presents to the emergency department with syncope. Upon evaluation, patient is awake and alert. He is a very poor historian. Per chart he has a history of metastatic esophageal cancer with malignant ascites that has required multiple paracentesis. He does not know if he is ever received chemotherapy. His only current complaint is his feet are cold. Patient reportedly just moved down here from out of state to be with his sister who was previously present in the emergency department but had to take her home. No collateral information can be obtained from her at this time. He underwent paracentesis today from around 1:49 PM with removal of almost 4 L of fluid. Afterwards he was reportedly lightheaded and dizzy, followed by syncope. In the emergency department he was found to have hypotension with cold extremities. He was started on albumin as well as IV fluids with improvement in blood pressure. He is currently normotensive. He denies chest pain, fevers, nausea or emesis. Denies other alleviating or aggravating factors. Chart review from [facility] care with Dr Lombardo. He was diagnosed about a year ago in [place], [place]. He reportedly underwent some chemoradiation but was reportedly poorly compliant. He reportedly only went to 1-2 treatment and that was around 11 months ago. Refer to Office Note on 12/15/21 for further details. Review of Systems Narrative: A complete review of systems was obtained and is negative except as stated in HPI. Medications/Allergies Home Medications Medication Instructions Recorded Confirmed Last Taken Type ciprofloxacin HCl 500 mg tablet 500 mg PO DAILY 12/14/21 12/29/21 01/01/22 History (Cipro) gabapentin 100 mg capsule 200 mg PO TID 12/14/21 12/29/21 01/01/22 History oxycodone 5 mg tablet 5 mg PO Q6H PRN Pain 12/14/21 12/29/21 01/01/22 09:30 History polyethylene glycol 3350 17 gram 17 g PO DAILY PRN Constipation 12/14/21 12/29/21 12/31/21 History oral powder packet (Miralax) acetaminophen 500 mg tablet 1,000 mg PO Q6H PRN Pain 12/15/21 01/01/22 1 Week Ago History ~12/25/21 ibuprofen 200 mg tablet 600 mg PO Q6H PRN Pain 12/15/21 01/01/22 1 Week Ago History ~12/25/21 promethazine 25 mg tablet 25 mg PO Q6H PRN nausea and 12/15/21 01/01/22 12/28/21 Rx vomiting #20 tabs midodrine 5 mg tablet 5 mg PO TID #90 tabs 12/21/21 12/29/21 01/01/22 Rx Allergies Allergy/AdvReac Type Severity Reaction Status Date / Time No Known Allergies Allergy Verified 01/01/22 16:30 PFSH Acute PFSH: Medical History Esophageal cancer Malignant ascites Port-A-Cath in place Family History Mother CAD (coronary artery disease) Diabetes Grandmother CAD (coronary artery disease) Diabetes Father Lung disease copd Denies family history of Clotting disorder Dementia Hyperlipidemia Psychiatric illness Chronic kidney disease (CKD) Anesthesia complication Bleeding disorder Cancer Hypertension Stroke Social History Smoking and tobacco status: never smoked Alcohol intake: never Desire information about alcohol rehabilitation?: No Desire information about substance/drug rehabilitation?: No Adopted: No Caregiver/support person: Yes Current occupational status: disabled History of recent travel: Yes Current gender identity: Male Vitals/I&O/Wt Last Vital Signs Pulse 96 01/01/22 16:47 Resp 16 01/01/22 16:47 BP 80/52 01/01/22 16:47 Pulse Ox 97 01/01/22 16:47 O2 Del Method 01/01/22 16:30 Weight last 48 hrs Weight 95.254 kg Physical Exam Narrative: General: Patient is awake. Appears poorly kept. Frail appaering. Head: Normocephalic. Atraumatic. EOM intact. Poor dentition. Neck: No JVD. Cardiovascular: RRR. No gallops. No murmurs. Lungs: Breath sounds diminished in bilateral bases, no use of accessory muscles, no crackles or wheezes. Skin: No rashes. Abdomen: Normal bowel sounds, abdomen is distended but not taunt. Genito Urinary: Genital exam not performed since complaints not related. Rectal: Rectal exam not performed since no symptoms indicated blood loss. Extremities: No clubbing. Toes are dusky colored. Poor capillary refill. Poor pedal pulses. Musculoskeletal: No swollen or erythematous joints. Neurological: Moves all 4 extremities. No myoclonus. Data 01/01/22 16:45 01/01/22 16:45 A&P Assessment and plan (1) Hypotension: Associated with altered mental status secondary to poor cerebral perfusion Associated with lactic acidosis, metabolic acidosis due to tissue hypoperfusion Status post albumin in ED Start albumin infusions Q6H Consider additional IVF as needed Close hemodynamic monitoring Continue home midodrine (2) Esophageal cancer: Patient is a poor historian Oncology history is unclear Follow up with sister Plan for goals of care conversation (3) Malignant ascites: Status post abdominal paracentesis with removal of 3675 mL earlier today (4) Pain of metastatic malignancy: Continue home oxycodone as needed Continue home Tylenol as needed Continue home gabapentin (5) Hyperkalemia: IV fluids as above Repeat renal panel in AM (6) Chronic hyponatremia: Continue to monitor (7) Anemia: Associated with thrombocytopenis HGB 7.6 and PLT 102, close to recent baseline (8) Leukocytosis: Persistent Unclear if infection vs stress vs cancer Plan DVT ppx: SCD Code status: DNR - Discussed with patient Attestations Medical Necessity Statement*: Patient presents with altered mental status secondary to cerebral hypoperfusion secondary to hypotension from paracentesis, found to have multiple metabolic and hematologic derrangements for which he requires hospitalization for IV albumin, supportive care, hemodynamic monitoring, and ongoing goals of care conversation. Expected hospitalization not to cross 2 midnights. Coding Level of Care Code Acute Oil Inspector for Kin Francis Diagnoses Hypotension I95.9 Esophageal cancer C15.9 Malignant ascites R18.0 Pain of metastatic malignancy G89.3 Hyperkalemia E87.5 Chronic hyponatremia E87.1 Anemia D64.9 Leukocytosis D72.829
--- NOTE | 2022-01-01 18:29 | PC.NURSE ---
pedal pulses dopplared
[2022-01-01 18:43] LABS: Reflex Lactate Order REFLEX LACTIC ORDERD
--- NOTE | 2022-01-01 18:57 | PC.NURSE ---
Report given to STANLEY Barry on CSU
--- NOTE | 2022-01-01 19:02 | PC.PHAR ---
Patient's sister states he has not started taking Morphine 100mg/5 mL 0.25-1 mL Q4H yet and is still taking oxycodone 5mg q6h PRN pain. Patient is not taking atropine 1% eye drops, and has not used the suppository.
[2022-01-01 20:31] LABS: Lactic Acid level (Lactate) 3.1 mmol/L (0.5-2.2)
[2022-01-01] MEDS: midodrine 5 mg TABLET PO (21:30)
[2022-01-01] MEDS: gabapentin 100 mg Capsule 200 MG PO (21:30)
[2022-01-01 23:41] LABS: Add Urine Microscopic? YES; Bilirubin Urine Neg (Negative); Blood Urine Trace (Negative); Glucose Urine UA Norm (Normal); Ketones Urine 1+ (Negative); Leukocyte Esterase Urine Negative (Negative); Nitrate Urine Negative (Negative); Protein Urine 1+ (Negative); Urine Appearance Clear (CLEAR); Urine Color Yellow (Yellow); Urobilinogen Urine Norm (Negative); pH Urine 7 (5-7)
[2022-01-01 23:42] LABS: Amorphous Sediment Urine 2+ /hpf; Bacteria Urine TRACE /hpf; Coarse Granular Casts Urine 0-4 /lpf; Uric Acid Crystals Urine 1 /hpf; WBC Urine 0-4 /hpf (0-5)
[2022-01-01 23:43] LABS: Add Urine Culture? No
[2022-01-02] VITALS (45 sets, daily range): BP systolic 68–100; BP diastolic 36–61; PULSE 80–102; RESP 8–25; TEMP 36.6–37; O2SAT 66–100
--- NOTE | 2022-01-02 01:12 | PC.NURSE ---
Spoke with regarding patient with low BPs, put in trendelenburgs and BP is still only 90/51. orderd a bolus of 250ml.
[2022-01-02] MEDS: sodium chloride 0.9% 250 ML IV (01:22)
[2022-01-02] MEDS: acetaminophen 500 mg Tablet 1000 MG PO ×2 (03:05→10:29)
[2022-01-02 05:41] LABS: Mean Corpuscular HGB Conc 30.9 g/dL (30.0-36.0); Mean Corpuscular Hemoglobin 27.7 pg (28.0-34.0); Mean Corpuscular Volume 89.7 fl (80-94); Mean Platelet Volume 10.3 fL (7.4-10.4); Platelet Count 77 10^3/cmm (130-400); Red Blood Count 1.95 10^6/uL (4.1-5.3); Red Cell Distribution Width 17.2 % (12.1-15.1)
[2022-01-02 06:08] LABS: Alanine Aminotransferase 8 U/L (0-41); Albumin Level 3.2 g/dL (3.5-5.2); Alkaline Phosphatase 184 U/L (40-130); Anion Gap 18.5 (5-19); Aspartate Amino Transferase 28 U/L (0-40); Blood Urea Nitrogen 58 mg/dL (6-20); Carbon Dioxide 17 mmol/L (22-29); Chloride 91 mmol/L (98-107); Globulin 2.2 g/dL (1.3-4.6); Glomerular Filtration Rate 36.6 mL/min (90-130); Glucose 108 mg/dL (65-115); Magnesium 2.6 mg/dL (1.7-2.3); Osmolality Calculated 269 mOsm/kg (285-295); Phosphorus 4.7 mg/dL (2.5-4.5); Potassium 5.5 mmol/L (3.5-5.1); Sodium 121 mmol/L (136-145); Total Bilirubin 0.4 mg/dL (0.15-1.2); Total Protein 5.4 g/dL (6.6-8.7)
[2022-01-02 06:17] LABS: Hematocrit 17.5 % (42.0-52.0)
[2022-01-02 06:19] LABS: Hemoglobin 5.4 g/dL (11.7-16.6)
[2022-01-02 06:30] LABS: Absolute Eosinophils 0.1 10^3/cmm (0.0-0.7); Absolute Segmented Neutrophil 9.4 10/cmm (1.6-7.1); Band Neutrophils Absolute 0.1 10^3/cmm (0.0-1.2); Eosinophils 1 %; Lymphocytes 4 %; Monocytes Absolute 0.7 10^3/cmm (0.1-0.6); Segmented Neutrophils 85 %; Slide Review Slide Review Perform; Total Cells Counted 100 (0-100)
[2022-01-02 06:31] LABS: Absolute Neutrophil 9.5 10^3/cmm (1.4-6.5); Lymphocytes Absolute 0.4 10^3/cmm (1.2-3.4); Platelet Estimate Decreased (Normal)
[2022-01-02 06:32] LABS: Anisocytosis 1+
[2022-01-02] MEDS: albumin 25 G/100 ML BAG 60 G IV ×2 (06:35→14:29)
--- NOTE | 2022-01-02 06:58 | PC.NURSE ---
Spoke with regarding patients H&H 5.05/28.5 ordered to recheck h&H and get a type and screen. Put 2 units PRBCs on hold for possible transusion depending on new H&H.
[2022-01-02 07:31] LABS: Hematocrit 18.8 % (42.0-52.0); Hemoglobin 5.9 g/dL (11.7-16.6)
[2022-01-02] MEDS: gabapentin 100 mg Capsule 200 MG PO ×2 (08:23→16:59)
[2022-01-02] MEDS: ciprofloxacin 500 mg Tablet PO (08:23)
[2022-01-02] MEDS: midodrine 5 mg TABLET PO (08:23)
--- NOTE | 2022-01-02 12:35 | P.PN_ITS ---
Subjective Subjective: Patient remained hypotension overnight. He complains of foot and toe pain this morning. Denies chest pain, nausea, fevers, or chills. Met with patient's sister and patient again later in the day. She is his primary caregiver now. He is living with her. We discussed advance care planning for 20 minutes. Discussed the importance of advance care planning which she was in agreement. She reports they had looked into hospice who has provided them some equipment but she feels like she's gotten mixed messages and patient often changes his own mind about his goals of care. She reports he has wanted treatment and state he doesn't want to but then changes his mind. She is unsure about what to do. I discussed his very poor prognosis. Discussed hospice and palliative care versus oncology evaluation. I am not confident patient would be a candidate for any disease oriented treatment. Sister thinks further information from oncology may be helpful to her decisions regarding his goals of care. Medications: Reviewed: Yes Vitals/I&O/Wt Last Vital Signs Temp 98.4 F 01/02/22 12:10 Pulse 94 01/02/22 12:10 Resp 18 01/02/22 12:10 BP 79/58 01/02/22 12:10 Pulse Ox 98 01/02/22 12:10 O2 Del Method 01/02/22 04:00 01/01/22 01/02/22 01/02/22 22:59 06:59 14:59 Intake Total 1320 / 1320 470 / 1790 220 / 220 Output Total 100 / 100 200 / 300 Balance 1220 / 1220 270 / 1490 220 / 220 Weight last 48 hrs Weight 90.01 kg Weight 95.254 kg Physical Exam Narrative: General: Patient is awake. Appears poorly kept. Frail appearing. Head: Temporal wasting. Poor dentition. Neck: No JVD. Cardiovascular: RRR. No gallops. No murmurs. Lungs: Breath sounds diminished in bilateral bases, no use of accessory muscles, no crackles or wheezes. Skin: No rashes. Abdomen: Normal bowel sounds, abdomen is distended but not taunt. Genito Urinary: Genital exam not performed since complaints not related. Rectal: Rectal exam not performed since no symptoms indicated blood loss. Extremities: No clubbing. Toes are dusky colored. Poor capillary refill. Poor pedal pulses. Musculoskeletal: No swollen or erythematous joints. Neurological: Moves all 4 extremities. No myoclonus. Data 01/02/22 07:12 01/02/22 04:55 A&P Assessment and plan (1) Hypotension: Associated with altered mental status secondary to poor cerebral perfusion Associated with lactic acidosis, metabolic acidosis due to tissue hypoperfusion Remains hypotensive, not responding to treatment as intended Continue albumin infusions Q6H Blood transfusions Hemodynamic monitoring Increase midodrine to 10 mg TID Backorder AM cortisol (2) Esophageal cancer: Metastatic poorly differentiated adenocarcinoma, HER2 negative, MSI negative Advance care planning as above Oncology consult (3) Malignant ascites: Status post abdominal paracentesis with removal of 3675 mL on 01/01 (4) Pain of metastatic malignancy: Continue home oxycodone as needed Continue home Tylenol as needed Continue home gabapentin (5) Hyperkalemia: Trend renal panel Kayexalate (6) Chronic hyponatremia: Continue to monitor (7) Anemia: Associated with thrombocytopenis HGB in 5s Transfuse 2 pRBCs (8) Leukocytosis: Persistent Unclear if infection vs stress vs cancer Plan DVT ppx: SCD Code status: DNR Attestations Medical Necessity Statement*: Patient requires ongoing hospitalization with expected course to cross 2 midnights for hypotension, blood transfusion, treatment of hyperkalemia, electrolyte monitoring, and oncology evaluation. Coding Level of Care Code Acute Lockstitcher for [place] Tito Diagnoses Hypotension I95.9 Esophageal cancer C15.9 Malignant ascites R18.0 Pain of metastatic malignancy G89.3 Hyperkalemia E87.5 Chronic hyponatremia E87.1 Anemia D64.9 Leukocytosis D72.829
[2022-01-02 14:14] LABS: Cortisol Random 20.85 ug/dL (2.47-19.5)
[2022-01-02] MEDS: sodium polystyrene sulfonate 15 gm/60 mL Btl PO (14:16)
[2022-01-02] MEDS: sodium chloride 0.9% (100 ml) 100 ML 50 ML (14:16)
--- NOTE | 2022-01-02 16:50 | PM.CONSULT ---
Providers/Reason For Consult Consulting Physician/Specialty*: Medical oncology Reason for Consult*: Esophageal cancer Requesting Physician: Gallito Melvin MD Attending Physician: Gallito Melvin MD Primary Care Provider: Harry Lombardo MD History of Present Illness History of Present Illness Neville Galeas is a 56 year old man with known esophageal cancer and associated ascites. According to information obtained from the patient's sister and from limited available records, he was diagnosed with esophageal cancer in [place], [place] approximately 1 year ago. He apparently began chemotherapy and radiation, but he stopped treatment within a short time and he then failed to have any further oncology follow-up. He then lived in the [facility] for a period of time, and he subsequently moved to [place], [place] to live with his daughter. While he was there, he underwent multiple paracentesis procedures for ascites and he also underwent placement of an intraperitoneal Pleurx catheter. He was then admitted to the hospital in [place] with suspected sepsis. At discharge from the hospital on 12/11/2021 his sister brought him to the [facility] to live with her. He had a primary care visit with Dr. Lombardo on 12/15/2021. He had further outpatient paracentesis procedures on 12/18/2021 and on 12/25/2021. He had been scheduled to have an outpatient visit with me tomorrow. In the meantime, he presented to the emergency room yesterday with severe pain and discoloration in his feet, right worse than left. He had evidence of distal arterial insufficiency, and he had multiple laboratory abnormalities including leukocytosis, moderately severe anemia, mild thrombocytopenia, lactic acidosis, acute renal injury, hyponatremia, hyperkalemia, hypercalcemia, and hypoalbuminemia. He was admitted to the hospital and he has been on supportive care measures, including PRBC transfusion. His laboratory studies today show further decline in the hemoglobin from 7.6 to 5.9 g and there has been further increase in the serum creatinine from 1.6 to 1.9 mg/dL. His sister indicates that when he first arrived to this area he was still ambulatory and functioning reasonably well. His general condition has since then declined dramatically. He has been very weak and recently he has been confused. He has virtually no activity. He has had poor appetite and poor oral intake. She has not been aware of his having any fever, and he has not been having night sweating. He has not been having difficulty swallowing. He recently has developed productive cough, and he has had shortness of breath. He has not complained of chest pain. He has abdominal discomfort. He has not had bowel movement for several days. Bladder function apparently has been adequate. His main complaint is still the pain in his feet, right worse than left. He does not complain of headache. Recently he has not been able to sit up to eat, because he feels like passing out. He has not had focal neurologic symptoms. Review of Systems Narrative: Review of systems is as noted above. Medications/Allergies Home Medications Medication Instructions Recorded Confirmed Last Taken Type ciprofloxacin HCl 500 mg tablet 500 mg PO DAILY 12/14/21 01/01/22 01/01/22 History (Cipro) gabapentin 100 mg capsule 200 mg PO TID 12/14/21 01/01/22 01/01/22 History oxycodone 5 mg tablet 5 mg PO Q6H PRN Pain 12/14/21 01/01/22 01/01/22 09:30 History polyethylene glycol 3350 17 gram 17 g PO DAILY PRN Constipation 12/14/21 01/01/22 12/31/21 History oral powder packet (Miralax) acetaminophen 500 mg tablet 1,000 mg PO Q6H PRN Pain 12/15/21 01/01/22 1 Week Ago History ~12/25/21 ibuprofen 200 mg tablet 600 mg PO Q6H PRN Pain 12/15/21 01/01/22 1 Week Ago History ~12/25/21 promethazine 25 mg tablet 25 mg PO Q6H PRN nausea and 12/15/21 01/01/22 12/28/21 Rx vomiting #20 tabs midodrine 5 mg tablet 5 mg PO TID #90 tabs 12/21/21 01/01/22 01/01/22 Rx Allergies Allergy/AdvReac Type Severity Reaction Status Date / Time No Known Allergies Allergy Verified 01/01/22 16:30 Current Medications Generic Name Dose Route Start Last Admin Trade Name Freq PRN Reason Stop Dose Admin Acetaminophen 1,000 mg 01/01/22 18:31 01/02/22 10:29 Acetaminophen 500 Mg Tablet PO 1,000 mg Q6H PRN Administration Pain Gabapentin 200 mg 01/01/22 21:00 01/02/22 08:23 Gabapentin 100 Mg Capsule PO 200 mg TID JAYJAY Administration PFSH Acute PFSH: Medical History Esophageal cancer Malignant ascites Port-A-Cath in place Family History Mother CAD (coronary artery disease) Diabetes Grandmother CAD (coronary artery disease) Diabetes Father Lung disease copd Denies family history of Clotting disorder Dementia Hyperlipidemia Psychiatric illness Chronic kidney disease (CKD) Anesthesia complication Bleeding disorder Cancer Hypertension Stroke Social History Smoking and tobacco status: never smoked Alcohol intake: never Desire information about alcohol rehabilitation?: No Desire information about substance/drug rehabilitation?: No Adopted: No Caregiver/support person: Yes Current occupational status: disabled History of recent travel: Yes Current gender identity: Male Vitals/I&O/Wt Last Vital Signs Temp 97.9 F 01/02/22 16:00 Pulse 99 01/02/22 16:00 Resp 16 01/02/22 15:03 BP 84/43 01/02/22 16:00 Pulse Ox 100 01/02/22 16:00 O2 Del Method 01/02/22 14:31 01/02/22 01/02/22 01/02/22 06:59 14:59 22:59 Intake Total 470 / 1790 570 / 570 Output Total 200 / 300 Balance 270 / 1490 570 / 570 Weight last 48 hrs Weight 90.01 kg Weight 95.254 kg Physical Exam Narrative: Constitutional: He appears generally weak. He is lethargic, but arousable. At times he appears mildly agitated. Eyes: Sclerae nonicteric. Conjunctivae clear. ENMT: Mouth is dry. There are no lesions noted in the oral cavity. Hematologic/Lymphatic: No cervical, clavicular, or axillary adenopathy. Respiratory: Lungs show slightly coarse breath sounds bilaterally. Cardiovascular: Heart rhythm is regular. There is no murmur, gallop, or rub noted. Abdomen: Distended with ascites and mildly tender. Liver and spleen do not appear overtly enlarged. There is no abdominal mass noted. There is no inguinal adenopathy noted. Extremities: No edema. The lower extremities show acral cyanosis, and the toes are cold to touch, right worse than left. He has palpable dorsalis pedis pulses. Integumentary: No rashes. No suspicious skin lesions noted. Neurologic: He has lethargy and confusion. He does not appear to have any focal neurologic deficit. Data 01/02/22 07:12 01/02/22 04:55 A&P Assessment and plan (1) Esophageal cancer: This is a 56-year-old man with history of having been diagnosed with esophageal cancer approximately 1 year ago. He apparently began on chemotherapy and radiation, but stopped treatment within a very short time. He had subsequently developed ascites, presumed to be malignant, though his peritoneal fluid cytology was negative. In any case, he presents now with what appears to be end-stage malignancy. 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 Sepsis also could be contributing. In either case, he appears now to be developing multiorgan failure, and his prognosis is extremely poor. I discussed the situation at some length with the patient's sister, and given the circumstances, my recommendation is to transition his care to comfort measures only. If he can be stabilized it may be feasible to discharge him home on hospice, but it would otherwise best to continue with inpatient management. Coding Level of Care Code Acute Bleach Packer for Kin Francis Diagnoses Esophageal cancer C15.9
[2022-01-02] MEDS: midodrine 5 mg TABLET 10 MG PO (16:59)
[2022-01-02] MEDS: oxyCODONE 5 mg IR Tab/Cap PO (17:16)
[2022-01-02] MEDS: LORazepam 2 mg/mL INJ 1 mL IVP (19:33)
[2022-01-02] MEDS: morphine 4 mg/mL SDV 1 mL IVP (19:34)
--- NOTE | 2022-01-02 19:46 | PC.NURSE ---
Patient c/o pain 10/10 to legs, abd and generalized. Medicated as ordered and documented. Will continue to monitor.
[2022-01-03 06:15] VITALS: RESP 20
[2022-01-03] MEDS: morphine 4 mg/mL SDV 1 mL IVP ×3 (06:15→13:26)
--- NOTE | 2022-01-03 08:16 | PM.PN ---
Subjective Subjective: Patient transitioned to comfort care measures on 01/02 per sister's and patient's request. He is awake this morning. Endorses being thirsty. Denies any other complaints. Denies fevers, chills, chest pain, or abdominal pain. Medications: Reviewed: Yes Vitals/I&O/Wt Last Vital Signs Temp 97.9 F 01/02/22 16:00 Pulse 90 01/02/22 19:21 Resp 20 H 01/03/22 06:15 BP 90/46 01/02/22 19:21 Pulse Ox 100 01/02/22 16:00 O2 Del Method 01/02/22 14:31 01/02/22 01/03/22 01/03/22 22:59 06:59 14:59 Intake Total 650 / 1220 Output Total 100 / 100 0 / 100 Balance 550 / 1120 0 / 1120 Weight last 48 hrs Weight 90.01 kg Weight 95.254 kg Physical Exam Narrative: General: Patient is awake. Frail appearing. Head: Temporal wasting. Poor dentition. Neck: No JVD. Cardiovascular: Poor peripheral perfusion. Lungs: Breath sounds diminished in bilateral bases, no use of accessory muscles, no crackles or wheezes. Skin: No rashes. Abdomen: Normal bowel sounds, abdomen is distended but not taunt. Genito Urinary: Genital exam not performed since complaints not related. Rectal: Rectal exam not performed since no symptoms indicated blood loss. Extremities: No clubbing. Toes are dusky colored. Poor capillary refill. Musculoskeletal: No swollen or erythematous joints. Neurological: Moves all 4 extremities. No myoclonus. Data 01/02/22 07:12 01/02/22 04:55 A&P Assessment and plan (1) Hypotension: Associated with altered mental status secondary to poor cerebral perfusion Associated with lactic acidosis, metabolic acidosis due to tissue hypoperfusion Continue comfort care measures Psychosocial support offered Analgesics as needed Antiemetics as needed (2) Esophageal cancer: Metastatic poorly differentiated adenocarcinoma, HER2 negative, MSI negative Oncology evaluated 01/02 Transitioned to comfort measures 01/02 (3) Malignant ascites: Status post abdominal paracentesis with removal of 3675 mL on 01/01 (4) Pain of metastatic malignancy: Analgesics ordered (5) Hyperkalemia: No further labs as patient is on comfort measures (6) Chronic hyponatremia: No further labs as patient is on comfort measures (7) Anemia: Suspected DIC No further labs as patient is on comfort measures (8) Leukocytosis: No further labs as patient is on comfort measures Plan Code status: DNR Attestations Medical Necessity Statement*: Patient requires ongoing hospitalizaation for IV analgesics in the setting of comfort care with advance cancer. Coding Level of Care Code Acute Portable Pinch Riveter for g Fwd Diagnoses Hypotension I95.9 Esophageal cancer C15.9 Malignant ascites R18.0 Pain of metastatic malignancy G89.3 Hyperkalemia E87.5 Chronic hyponatremia E87.1 Anemia D64.9 Leukocytosis D72.829
[2022-01-03 09:14] VITALS: RESP 16
[2022-01-03] MEDS: gabapentin 100 mg Capsule 200 MG PO (09:14)
--- NOTE | 2022-01-03 10:01 | PC.CHAP ---
Pastoral Care Encounter/Spiritual Assessment Type of Contact [] Declined theatrical performer visit [] Patient/Family/Request visit [] Outpatient visit [] Follow-up visit [] Physician referral [] Code/Alert [x]x Routine visit [] Staff referral [] Actively dying [x] Patient sleeping [] Family support [] [] Out of room [] Palliative care [] [] Receiving care in room [] Pre-surgical visit [] Trauma [] Long length of stay [] ICU visit [] Other: Relational/Emotional Strength [] Patient feels connected with others/family/visitors/staff [] Distress [] Loneliness/isolation [] Abandonment Spirituality of Patient [] Person of Darlin [] Attends Uatsdin of their Darlin [] Believes in Prayer [] Reads Bible or Nondenominational materials [] There are Spiritual issues to be addressed Back End Architect Interventions [] Prayer [] Active listening [] Non-anxious presence [] Spiritual/emotional support [] Crisis/trauma care [] Spiritual counseling [] Bereavement support [] Provided bereavement packet [] Provided Bible/devotional materials [] Provided toy/stuffed animal, coloring book to patient or family member [] Provided Communion [] Anointing/[place] [] Salvation [] Completed spiritual assessment [] Other: Impact on Illness or Injury [] Angry [] Fearful [] Anxious [] Often cries [] Exhaustion [] Unable to work [] Unable to attend restorationism [] Unable to walk/stand [] Unable to read [] Unable to drive [] Unable to eat/drink [] Unable to sleep [] Unable to be with family [] Patient intubated [] Other: Summary Time spent with patient
--- NOTE | 2022-01-03 12:02 | P.DS_ITS ---
Discharge Providers Date of Admission: 01/02/22 13:47 Date of Discharge: January 03, 2022 Attending Provider at Admission: Gallito Melvin MD Attending Provider at Discharge: Gallito Melvin MD Consults: Medical Oncology Primary Care Provider: Harry Lombardo MD Diagnoses at Discharge Discharge Diagnosis (1) Hypotension: Status: Acute (2) Esophageal cancer: Status: Acute (3) Malignant ascites: Status: Acute (4) Pain of metastatic malignancy: Status: Acute (5) Hyperkalemia: Status: Acute (6) Chronic hyponatremia: Status: Acute (7) Anemia: Status: Acute (8) Leukocytosis: Status: Acute Reason for Visit Reason for Visit: toes are purple sent by PCP Hospital Course Hospital Course Neville Galeas is a 56-year-old male with a past medical history significant for tobacco use disorder, alcohol use disorder, and metastatic esophageal adenocarcinoma with malignant ascites who presented with hypotension following paracentesis. He was treated with IV fluids, ascites, and midodine. He was found to have pancytopenia status post 2 pRBC transfusion. He was found to have multiple metabolic derrangements including lactic acidosis, hyponatremia, and hyperkalemia. Medical oncology was consulted and recommended comfort care given severe burden of disease. Patient and his sister in agreement with comfort care measures. Hospice was set up prior to discharge. Patient was discharged to sister's home on hospice. Physical Exam Narrative: General: Patient is awake. Frail appearing. Head:? Temporal wasting.? Poor dentition. Neck: No JVD. Cardiovascular: Poor peripheral perfusion. Lungs: Breath sounds diminished in bilateral bases, no use of accessory muscles, no crackles or wheezes. Skin: No rashes. Abdomen: Normal bowel sounds, abdomen is distended but not taunt. Genito Urinary: Genital exam not performed since complaints not related. Rectal: Rectal exam not performed since no symptoms indicated blood loss. Extremities: No clubbing.? Toes are dusky colored.? Poor capillary refill.? Musculoskeletal: No swollen or erythematous joints. Neurological: Moves all 4 extremities. No myoclonus. Discharge Data Studies Completed and Pending Laboratory Results WBC 11.0 10^3/uL (4.0-10.0) H 01/02/22 04:55 RBC 1.95 10^6/uL (4.1-5.3) L 01/02/22 04:55 Hgb 5.9 g/dL (11.7-16.6) L* 01/02/22 07:12 Hct 18.8 % (42.0-52.0) L* 01/02/22 07:12 MCV 89.7 fl (80-94) 01/02/22 04:55 MCH 27.7 pg (28.0-34.0) L 01/02/22 04:55 MCHC 30.9 g/dL (30.0-36.0) 01/02/22 04:55 RDW 17.2 % (12.1-15.1) H 01/02/22 04:55 Plt Count 77 10^3/cmm (130-400) L 01/02/22 04:55 MPV 10.3 fL (7.4-10.4) 01/02/22 04:55 Neut % (Auto) Health Assessment And Treatment Teacher 01/02/22 04:55 Lymph % (Auto) Health Assessment And Treatment Teacher 01/02/22 04:55 Clay % (Auto) Health Assessment And Treatment Teacher 01/02/22 04:55 Eos % (Auto) Health Assessment And Treatment Teacher 01/02/22 04:55 Baso % (Auto) Health Assessment And Treatment Teacher 01/02/22 04:55 Neut # (Auto) Health Assessment And Treatment Teacher 01/02/22 04:55 Lymph # (Auto) Health Assessment And Treatment Teacher 01/02/22 04:55 Clay # (Auto) Health Assessment And Treatment Teacher 01/02/22 04:55 Eos # (Auto) Health Assessment And Treatment Teacher 01/02/22 04:55 Baso # (Auto) Health Assessment And Treatment Teacher 01/02/22 04:55 Nucleated RBC % (auto) Health Assessment And Treatment Teacher 01/02/22 04:55 Total Counted 100 (0-100) 01/02/22 04:55 Atypical Lymphs % 0.0 % (0-5) 01/02/22 04:55 Absolute Neutrophils 9.5 10^3/cmm (1.4-6.5) H 01/02/22 04:55 Segmented Neutrophils 85 % 01/02/22 04:55 Abs Segm Neuts (Man) 9.4 10/cmm (1.6-7.1) H 01/02/22 04:55 Band Neutrophils 1.0 % 01/02/22 04:55 Abs Band Neuts (Man) 0.1 10^3/cmm (0.0-1.2) 01/02/22 04:55 Absolute Lymphocytes 0.4 10^3/cmm (1.2-3.4) L 01/02/22 04:55 Lymphocytes (Manual) 4 % 01/02/22 04:55 Monocytes (Manual) 6.0 % 01/02/22 04:55 Absolute Monocytes 0.7 10^3/cmm (0.1-0.6) H 01/02/22 04:55 Eosinophils (Manual) 1 % 01/02/22 04:55 Absolute Eosinophils 0.1 10^3/cmm (0.0-0.7) 01/02/22 04:55 Basophils (Manual) 0.0 % 01/02/22 04:55 Absolute Basophils 0.0 10^3/cmm (0.0-0.2) 01/02/22 04:55 Metamyelocytes 2.0 % 01/02/22 04:55 Myelocytes 1.0 % 01/02/22 04:55 Nucleated RBCs 1.0 /100WBC (0-1) 01/02/22 04:55 Nucleated RBCs # Health Assessment And Treatment Teacher 01/02/22 04:55 Platelet Estimate Decreased (Normal) 01/02/22 04:55 Anisocytosis 1+ H 01/02/22 04:55 PT 14.50 SECONDS (12.1-14.9) 01/01/22 16:45 INR 1.10 (0.8-1.2) 01/01/22 16:45 Sodium 121 mmol/L (136-145) L 01/02/22 04:55 Potassium 5.5 mmol/L (3.5-5.1) H 01/02/22 04:55 Chloride 91 mmol/L (98-107) L 01/02/22 04:55 Carbon Dioxide 17 mmol/L (22-29) L 01/02/22 04:55 Anion Gap 18.5 (5-19) 01/02/22 04:55 BUN 58 mg/dL (6-20) H 01/02/22 04:55 Creatinine 1.9 mg/dL (0.7-1.2) H 01/02/22 04:55 GFR Calculation 36.6 mL/min (90-130) L 01/02/22 04:55 Glucose 108 mg/dL (65-115) 01/02/22 04:55 Calculated Osmolality 269 mOsm/kg (285-295) L 01/02/22 04:55 Lactic Acid 5.2 mmol/L (0.5-2.2) H* 01/01/22 16:45 Lactic Acid (Sepsis) 3.1 mmol/L (0.5-2.2) H 01/01/22 19:55 Calcium 11.0 mg/dL (8.5-10.5) H 01/02/22 04:55 Phosphorus 4.7 mg/dL (2.5-4.5) H 01/02/22 04:55 Magnesium 2.6 mg/dL (1.7-2.3) H 01/02/22 04:55 Total Bilirubin 0.4 mg/dL (0.15-1.2) 01/02/22 04:55 AST 28 U/L (0-40) 01/02/22 04:55 ALT 8 U/L (0-41) 01/02/22 04:55 Alkaline Phosphatase 184 U/L (40-130) H 01/02/22 04:55 Total Protein 5.4 g/dL (6.6-8.7) L 01/02/22 04:55 Albumin 3.2 g/dL (3.5-5.2) L 01/02/22 04:55 Globulin 2.2 g/dL (1.3-4.6) 01/02/22 04:55 Random Cortisol 20.85 ug/dL (2.47-19.5) H 01/02/22 04:55 Urine Color Yellow (Yellow) 01/01/22 23:15 Urine Appearance Clear (CLEAR) 01/01/22 23:15 Urine pH 7 (5-7) 01/01/22 23:15 Ur Specific [place] 1.020 (1.005-1.030) 01/01/22 23:15 Urine Protein 1+ (Negative) H 01/01/22 23:15 Urine Glucose (UA) Norm (Normal) 01/01/22 23:15 Urine Ketones 1+ (Negative) H 01/01/22 23:15 Urine Blood Trace (Negative) H 01/01/22 23:15 Urine Nitrate Negative (Negative) 01/01/22 23:15 Urine Bilirubin Neg (Negative) 01/01/22 23:15 Urine Urobilinogen Norm mg/dL (Negative) 01/01/22 23:15 Ur Leukocyte Esterase Negative (Negative) 01/01/22 23:15 Urine RBC None /hpf (0-2) 01/01/22 23:15 Urine WBC 0-4 /hpf (0-5) H 01/01/22 23:15 Ur Squamous Epith Cells None /hpf (0-5) 01/01/22 23:15 Uric Acid Crystals 1 /hpf 01/01/22 23:15 Amorphous Sediment 2+ /hpf 01/01/22 23:15 Urine Bacteria Trace /hpf (NONE) 01/01/22 23:15 Hyaline Casts 5-10 /lpf H 01/01/22 23:15 Coarse Granular Casts 0-4 /lpf H 01/01/22 23:15 Blood Type O Positive 01/02/22 07:12 Rho(D) Type Positive 01/02/22 07:12 Antibody Screen Negative 01/02/22 07:12 Crossmatch See Detail 01/02/22 07:12 Vitals Last Vital Signs Temp 97.9 F 01/02/22 16:00 Pulse 90 01/02/22 19:21 Resp 16 01/03/22 09:14 BP 90/46 01/02/22 19:21 Pulse Ox 100 01/02/22 16:00 O2 Del Method 01/02/22 14:31 Discharge Plan Discharge Patient Disposition: Home Condition: Stable Prescriptions: Continued acetaminophen 500 mg Tablet 1,000 mg PO Q6H PRN (Reason: Pain) ibuprofen 200 mg Tablet 600 mg PO Q6H PRN (Reason: Pain) promethazine 25 mg tablet 25 mg PO Q6H PRN (Reason: nausea and vomiting) Qty: 20 0RF gabapentin 100 mg Capsule 200 mg PO TID polyethylene glycol 3350 [Miralax] 17 gram Powder In Packet 17 g PO DAILY PRN (Reason: Constipation) oxycodone 5 mg Tablet 5 mg PO Q6H PRN (Reason: Pain) Discontinued midodrine 5 mg tablet 5 mg PO TID Qty: 90 0RF Rx Instructions: do not give last dose of day after 6PM or within 4 hrs of bedtime ciprofloxacin HCl [Cipro] 500 mg Tablet 500 mg PO DAILY Discharge Orders: Discharge Order (Routine); Ordered 01/03/22 Ordered By: Gallito Melvin Referrals: Harry Lombardo MD [Primary Care Provider] - Discharge Diet: Advance as tolerated and Usual diet Discharge Activity: Increase activity as tolerated Patient Instructions: Opioid Safety Activity Restrictions/Additional Instructions: 1. Establish care with hospice 2. Drain up to 4 liters off abdominal drain per week and daily/PRN for distention Discharge Attestations Time Spent in Discharge Care*: greater than 30 min Quality Metrics Clinical Quality Measures [ No reported AMI, CVA or VTE this stay] Coding Level of Care Code Acute Chg FW DC note Diagnoses Hypotension I95.9 Esophageal cancer C15.9 Malignant ascites R18.0 Pain of metastatic malignancy G89.3 Hyperkalemia E87.5 Chronic hyponatremia E87.1 Anemia D64.9 Leukocytosis D72.829
[2022-01-03 13:26] VITALS: RESP 20
[2022-01-03] MEDS: LORazepam 2 mg/mL INJ 1 mL IVP (13:27)
[2022-01-03 15:04] VITALS: RESP 20
--- NOTE | 2022-01-03 15:05 | PC.NURSE ---
discharge instructions given to hospice.pt's sister phoned at her residence.home equipment has been delivered.pt transported by ems at 1430 via stretcher
== END 2022-01-03 14:30 | disposition home or self-care (01) | DRG 312 ==
LOC: ER 18:06 → CSU 18:41
PROVIDERS: Internal Medicine; Admitting Provider Internal Medicine; Emergency Provider Emergency Medicine; PCP Family Medicine; Visit Provider Internal Medicine
DX: I95.1 Orthostatic hypotension (principal); D65 Disseminated intravascular coagulation [defibrination syndrome]; C15.9 Malignant neoplasm of esophagus, unspecified; C78.6 Secondary malignant neoplasm of retroperitoneum and peritoneum; R18.0 Malignant ascites; E87.1 Hypo-osmolality and hyponatremia; E87.20 Acidosis, unspecified; D61.818 Other pancytopenia; N17.9 Acute kidney failure, unspecified; E87.5 Hyperkalemia; D64.9 Anemia, unspecified; Z95.828 Presence of other vascular implants and grafts; G89.3 Neoplasm related pain (acute) (chronic); F10.90 Alcohol use, unspecified, uncomplicated; F17.210 Nicotine dependence, cigarettes, uncomplicated; Z51.5 Encounter for palliative care; Z66 Do not resuscitate; I73.9 Peripheral vascular disease, unspecified
CPT/HCPCS: 36415; 36430; 80053; 81001; 82533; 83605; 83735; 84100; 85007; 85014; 85018; 85025; 85610; 86850; 86900; 86920; 93005; 96365; 99285; G0378; J2060; J2270; J7030; J7050; P9016; P9046; P9047